=== PATIENT | female | born 1995 | race Caucasian/White ===

== ENCOUNTER 2018-10-13 12:01 | Emergency (ER) | payer OTHER ==
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
[2018-10-13] MEDS ORDERED: IOHEXOL 350mgI/ML (OMNIPAQUE) 150 ML BTL IV ONE (13:08)
[2018-10-13 14:28] VITALS: BP 122/70
== END 2018-10-13 14:35 | disposition home or self-care (01) ==
DX: R07.9 Chest pain, unspecified (principal); S20.91XA Abrasion of unspecified parts of thorax, initial encounter; V49.49XA Driver injured in collision with other motor vehicles in traffic accident, initial encounter; Y92.410 Unspecified street and highway as the place of occurrence of the external cause
CPT/HCPCS: 82435-PO; 82565-PO; 82947-PO; 84132-PO; 84295-PO; 84520-PO; 85014-ER; Q9967